=== PATIENT | male | born 1955 | race Hispanic/Latino ===

== ENCOUNTER → 2019-10-18 | Outpatient (CLI) | payer OTHER | END | disposition home or self-care (01) | LOC: RAH 14:01 | PROVIDERS: ATTEND Family Medicine | DX: S83.242A Other tear of medial meniscus, current injury, left knee, initial encounter (principal); X58.XXXA Exposure to other specified factors, initial encounter; Y93.89 Activity, other specified; Y92.89 Other specified places as the place of occurrence of the external cause; Y99.8 Other external cause status | CPT/HCPCS: 73721 ==

== ENCOUNTER → 2019-12-01 | Outpatient (CLI) | payer OTHER | END | disposition home or self-care (01) | LOC: OIH 09:41 | PROVIDERS: ATTEND Family Medicine | DX: I10 Essential (primary) hypertension (principal); M47.814 Spondylosis without myelopathy or radiculopathy, thoracic region | CPT/HCPCS: 71046 ==

== ENCOUNTER 2020-01-24 13:00 | Observation (INO) | payer OTHER ==
[~2020-01-24] VITALS: Ht 170.2 cm; Wt 78.0 kg
[2020-01-24 11:40] LABS: BASOPHILS % (AUTO) 0.2 % (0.0-5.0); EOSINOPHILS % (AUTO) 2.4 % (0.0-8.0); HEMATOCRIT 43.2 % (42-54); LYMPHOCYTES % (AUTO) 45.7 % (21.0-51.0); MEAN CORPUSCULAR HEMOGLOBIN 30.4 pg (27.0-33.0); MEAN CORPUSCULAR VOLUME 86.9 fL (79-99); MONOCYTES % (AUTO) 7.1 % (3.0-13.0); NEUTROPHILS % (AUTO) 44.4 % (40.0-77.0); PLATELET COUNT (AUTO) 226 K/uL (130-400); RED BLOOD CELL COUNT(AUTO) 4.97 MIL/uL (4.50-6.20); RED CELL DISTRIBUTION WIDTH 12.2 % (11.0-15.5); WHITE BLOOD COUNT (AUTO) 5.5 K/uL (4.8-10.8)
[2020-01-24 11:42] LABS: APPEARANCE,URINE Clear (CLEAR); BILIRUBIN,URINE Negative (NEGATIVE); COLOR,URINE Yellow (YELLOW); GLUCOSE, URINE (UA) Negative (NEGATIVE); KETONES,URINE Negative (NEGATIVE); LEUKOCYTE ESTERASE ,URINE Negative (NEGATIVE); NITRATE,URINE Negative (NEGATIVE); OCCULT BLOOD,URINE Negative (NEGATIVE); PROTEIN,URINE Negative (NEGATIVE); UROBILINOGEN,URINE 0.2 mg/dL (0.2-1.0)
[2020-01-24 11:49] LABS: CREATININE 0.9 mg/dL (0.5-1.5); POTASSIUM 4.7 mmol/L (3.5-5.1)
[2020-01-24 12:01] LABS: INR 1.06 (0.85-1.15); PARTIAL THROMBOPLASTIN TIME 25.2 SEC (26.3-35.5); PROTHROMBIN TIME 11.4 SEC (9.6-11.6)
[2020-01-24 13:10] VITALS: BP 117/70
[2020-01-25] MEDS ORDERED: ATOR20TA65 PO (13:32)
[2020-01-25] MEDS ORDERED: METF-444 PO (13:32)
[2020-01-26] VITALS (22 sets, daily range): BP systolic 101–132; BP diastolic 65–80
[2020-01-26] MEDS: CEFAZOLIN SODIUM 1 GM VIAL IVP SCH ×4 (08:00→21:27)
[2020-01-26] MEDS ORDERED: SODIUM CHLORIDE 0.9% 1000ML 1,000 ML IV ONE (10:04)
[2020-01-26] MEDS ORDERED: CEFAZOLIN SODIUM 1 GM VIAL ONE (12:01)
[2020-01-26] MEDS ORDERED: TRANEXAMIC ACID 1000MG/10ML ONE ×2 (12:02→15:23)
[2020-01-26] MEDS ORDERED: PROPOFOL 10 MG/ML 20ML VIAL IV ONE (12:09)
[2020-01-26] MEDS ORDERED: LIDOCAINE PF 2% 5ML ABBOJECT ONE (12:09)
[2020-01-26] MEDS ORDERED: MIDAZOLAM HCL 1 MG/ML 2ML VIAL ONE (12:09)
[2020-01-26] MEDS ORDERED: ROCURONIUM 10MG/1ML SYR 10 MG/ML ML ONE (12:09)
[2020-01-26] MEDS ORDERED: FENTANYL CITRATE PF 50 MCG/1 ML 5ML AMP IV ONE (12:10)
[2020-01-26] MEDS ORDERED: ROPIVACAINE 0.5% 5MG/ML 30ML IJ ONE (12:17)
[2020-01-26] MEDS ORDERED: EPHEDRINE SULFATE 50 MG/ML AMPULE ONE (12:26)
[2020-01-26] MEDS: VANCOMYCIN 1.5 GM in SODIUM CHLORIDE 0.9% 250 ML IV SCH (12:33)
[2020-01-26] MEDS ORDERED: HETASTARCH IN 0.9 % NACL 500 ML IV ONE (12:38)
[2020-01-26] MEDS ORDERED: PHENYLEPHRINE HCL 10 MG/ML 1ML VIAL IV ONE (12:45)
[2020-01-26] MEDS ORDERED: DEXAMETHASONE SOD PHOSPHATE 10MG/ML 1ML VIAL ONE (12:57)
[2020-01-26] MEDS ORDERED: GLYCOPYRROLATE 1 MG/5 ML SYRINGE ONE (12:57)
[2020-01-26] MEDS ORDERED: ONDANSETRON HCL 4 MG/2 ML VIAL ONE (12:57)
[2020-01-26] MEDS ORDERED: NEOSTIGMINE 5MG/5ML SYR IV ONE (12:57)
[2020-01-26] MEDS ORDERED: FENTANYL CITRATE PF 50 MCG/1 ML 2ML VIAL ONE (14:39)
[2020-01-26] MEDS: SODIUM CHLORIDE 0.9% 1000ML 1,000 ML IV SCH ×2 (15:06→21:25)
[2020-01-26] MEDS ORDERED: TRAMADOL HCL 50 MG TABLET PO PRN (15:15)
[2020-01-26] MEDS ORDERED: ONDANSETRON HCL 4 MG/2 ML VIAL IVP PRN (15:15)
[2020-01-26] MEDS ORDERED: POTASSIUM CHLORIDE 20MEQ/100ML 100 ML IV PRN (15:15)
[2020-01-26] MEDS ORDERED: TEMAZEPAM 15 MG CAPSULE PO PRN (15:15)
[2020-01-26] MEDS ORDERED: LIDOCAINE HCL-MPF 1% 2ML VIAL IV PRN (15:15)
[2020-01-26] MEDS ORDERED: DiphenhydrAMINE HCL 50 MG/ML VIAL IVP PRN (15:15)
[2020-01-26] MEDS ORDERED: POTASSIUM CHLORIDE 20 MEQ ERTAB PO PRN (15:15)
[2020-01-26] MEDS: ACETAMINOPHEN EXTRA STRENGTH 500 MG TABLET PO SCH (15:15)
[2020-01-26] MEDS ORDERED: POTASSIUM CHLORIDE 10% ELIXIR 20 MEQ/15 ML UDCUP PO PRN (15:15)
[2020-01-26] MEDS ORDERED: FERROUS FUMARATE 324 MG TABLET PO PRN (15:15)
[2020-01-26] MEDS ORDERED: OXYCODONE HCL 5 MG TAB PO PRN (15:15)
[2020-01-26] MEDS ORDERED: MEPERIDINE-PF 25 MG/ML SYG ONE ×2 (15:16→15:27)
[2020-01-26] MEDS: INSULIN HUMULIN R 100 UNIT/ML 3ML SQ SCH ×2 (16:30→21:42)
[2020-01-26] MEDS: KETOROLAC TROMETHAMINE 15MG/ML IV PRN (16:40)
[2020-01-26] MEDS: OXYCODONE HCL 5 MG TAB PO PRN (21:25)
[2020-01-26] MEDS: FAMOTIDINE 20MG TAB 20 MG TAB PO SCH (21:26)
[2020-01-26] MEDS: PREGABALIN 25 MG CAP PO SCH (21:26)
[2020-01-26] MEDS: ASPIRIN 81MG TAB.CHEW PO SCH (21:26)
[2020-01-26] MEDS: CELECOXIB 200 MG CAP PO SCH (21:26)
[2020-01-26] MEDS: VANCOMYCIN 1GM+NS 250ML 250 ML IV SCH (21:26)
[2020-01-27] VITALS (7 sets, daily range): BP systolic 94–118; BP diastolic 52–61
[2020-01-27] MEDS: ACETAMINOPHEN EXTRA STRENGTH 500 MG TABLET PO SCH ×4 (00:23→23:43)
[2020-01-27] MEDS: CEFAZOLIN SODIUM 1 GM VIAL IVP SCH (04:18)
[2020-01-27] MEDS: OXYCODONE HCL 5 MG TAB PO PRN ×2 (04:19→13:17)
[2020-01-27 04:38] LABS: HEMATOCRIT 30.7 % (42-54); MEAN CORPUSCULAR HEMOGLOBIN 30.4 pg (27.0-33.0); MEAN CORPUSCULAR HGB CONC 35.5 g/dL (32.0-36.0); MEAN CORPUSCULAR VOLUME 85.8 fL (79-99); RED BLOOD CELL COUNT(AUTO) 3.58 MIL/uL (4.50-6.20); RED CELL DISTRIBUTION WIDTH 12.2 % (11.0-15.5)
[2020-01-27 05:31] LABS: CREATININE 0.9 mg/dL (0.5-1.5); POTASSIUM 3.6 mmol/L (3.5-5.1)
[2020-01-27] MEDS: INSULIN HUMULIN R 100 UNIT/ML 3ML SQ SCH ×4 (07:30→21:00)
[2020-01-27] MEDS: CALCIUM CARBONATE 500 MG TABLET PO PRN ×2 (08:50→23:41)
[2020-01-27] MEDS: FAMOTIDINE 20MG TAB 20 MG TAB PO SCH ×2 (09:40→22:01)
[2020-01-27] MEDS: CELECOXIB 200 MG CAP PO SCH ×2 (09:40→22:02)
[2020-01-27] MEDS: PREGABALIN 25 MG CAP PO SCH ×2 (09:40→22:01)
[2020-01-27] MEDS: ASPIRIN 81MG TAB.CHEW PO SCH ×2 (09:40→22:01)
[2020-01-27] MEDS: POLYETHYLENE GLYCOL 3350 17 GM POWD.PACK PO SCH (09:40)
[2020-01-27] MEDS: TAMSULOSIN HCL 0.4 MG CAP.ER.24H PO SCH (09:41)
[2020-01-27] MEDS: VANCOMYCIN 1GM+NS 250ML 250 ML IV SCH (09:41)
[2020-01-27] MEDS: SODIUM CHLORIDE 0.9% 1000ML 1,000 ML IV SCH (11:06)
[2020-01-27] MEDS: VANCOMYCIN 1.5 GM in SODIUM CHLORIDE 0.9% 250 ML IV SCH (11:15)
--- NOTE | 2020-01-27 14:39 | NUR ---
DC PLAN VISITED WITH PATIENT. PATIENT IN PAIN TRIED TO BE BRIEF. PATIENT LIVES WITH SPOUSE. NO DME OR SERVICES. GAVE OKAY FOR HOME HEALTH AND DME SET UP WITH [facility]. LET NURSE KNOW ABOUT PAIN. INFO SENT TO [facility] BUT DID NOT TRANSFER. GOT A NEW FAX NUMBER AND SUBMITTED. RECEIVED ACCEPTANCE FOR [facility] WILL DELIVER EQUIPMENT TO HOME. Addendum: 01/27/20 at 1505 by RADHA DUQUE RN CM Amended: Links added.
[2020-01-27] MEDS: KETOROLAC TROMETHAMINE 15MG/ML IV PRN (14:49)
--- NOTE | 2020-01-27 15:20 | NUR ---
[id number] patient bud EARLY Letter, I faxed EARLY Letter to [phone] and placed in chart under consent tab.
[2020-01-27] MEDS ORDERED: HYDROMORPHONE PCA 10 MG/50 ML 50 ML IV PRN (16:00)
[2020-01-28] VITALS: BP 110/65
[2020-01-28 04:00] VITALS: BP 115/55
[2020-01-28] MEDS: INSULIN HUMULIN R 100 UNIT/ML 3ML SQ SCH ×3 (05:58→16:10)
[2020-01-28] MEDS: ACETAMINOPHEN EXTRA STRENGTH 500 MG TABLET PO SCH ×2 (06:01→14:55)
[2020-01-28 07:30] VITALS: BP 141/75
[2020-01-28] MEDS: POLYETHYLENE GLYCOL 3350 17 GM POWD.PACK PO SCH (08:35)
[2020-01-28] MEDS: FAMOTIDINE 20MG TAB 20 MG TAB PO SCH (08:35)
[2020-01-28] MEDS: TAMSULOSIN HCL 0.4 MG CAP.ER.24H PO SCH (08:35)
[2020-01-28] MEDS: CELECOXIB 200 MG CAP PO SCH (08:36)
[2020-01-28] MEDS: ASPIRIN 81MG TAB.CHEW PO SCH (08:36)
[2020-01-28] MEDS: PREGABALIN 25 MG CAP PO SCH (08:36)
[2020-01-28 12:31] VITALS: BP 128/67
[2020-01-28] MEDS: OXYCODONE HCL 5 MG TAB PO PRN (13:25)
[2020-01-28] MEDS ORDERED: ASPI-1005 PO (14:36)
[2020-01-28] MEDS ORDERED: HYDR-4457 PO (14:36)
[2020-01-28 16:00] VITALS: BP 130/74
--- NOTE | 2020-01-28 16:34 | NUR ---
[id number] patient changed to INPT Status. Patient signed IM letter, I faxed IM letter to [phone] and placed in chart under consent tab.
--- NOTE | 2020-01-28 17:00 | NUR ---
INSTRUCTIONS DISCHARGE INSTRUCTIONS GIVEN TO PATIENT USING TEACH BACK. NEW PRESCRIPTIONS PLACED IN PACKET WITH ONE ELECTRONICALLY TRANSFERRED TO PATIENT'S PREFERRED PHARMACY. ALL PRINTED INFORMATION AND MD INSTRUCTIONS HAVE BEEN PLACED IN PACKET. F/U APPOINTMENT MADE FOR PATIENT. JAY DRESSING CHANGED PER MD ORDER. NO QUESTIONS OR CONCERNS VOICED. REPORT HAS BEEN CALLED TO [facility]. PENDING RIDE HOME.
[2020-01-29] MEDS ORDERED: BISACODYL 10 MG SUPP.RECT RC PRN (15:15)
== END 2020-01-28 17:30 | disposition home or self-care (01) ==
LOC: EDSTATUS 13:00 → DAHIP 01-26 08:10 → 3DH 01-26 14:28
PROVIDERS: ADMIT Orthopaedic Surgery; ATTEND Orthopaedic Surgery
DX: M17.12 Unilateral primary osteoarthritis, left knee (principal); E78.5 Hyperlipidemia, unspecified; E11.42 Type 2 diabetes mellitus with diabetic polyneuropathy; Z79.84 Long term (current) use of oral hypoglycemic drugs; Z79.899 Other long term (current) drug therapy
CPT/HCPCS: 27447; 36415 ×2; 80048 ×2; 81003; 82948 ×10; 85025; 85027; 85610; 85730; 87641; 93005; 96365; 96366 ×2; 96375; 96376; 97039 ×2; 97116 ×3; 97161; 97530 ×3; A4215; A4221; A4222; A4223; A4600; A4649 ×3; A4663; A4930; A9272; C1776; G0378 ×48; G8978; G8979; G8980; G8981; G8982; G8983; J0690 ×4; J1100; J1170; J1815; J1885 ×3; J2001; J2175 ×2; J2250; J2370; J2405; J2704; J2710; J2795; J3010 ×2; J3370 ×4; J3490 ×5; J7030 ×4; J7120